=== PATIENT | male | born 1990 | race Caucasian/White ===

== ENCOUNTER 2019-08-17 13:17 | Emergency (ER) | payer MEDICAID ==
[~2019-08-17] VITALS: Ht 170.2 cm; Wt 106.0 kg
[2019-08-17 20:09] LABS: BASOPHILS % 0.4 % (0.0-2.0); EOSINOPHILS % 1.6 % (0.0-5.0); HEMOGLOBIN. 16.4 g/dL (14.0-18.0); LYMPHOCYTES % 29.6 % (20.0-50.0); MEAN CORPUSCULAR HEMOGLOBIN 31.6 pg (28.0-32.0); MEAN CORPUSCULAR VOLUME 90.5 fL (80.0-94.0); MEAN PLATELET VOLUME 9.3 fl (7.4-10.4); MONOCYTES % 8.6 % (2.0-8.0); NEUTROPHILS % 59.8 % (40.0-76.0); PLATELET 243 x1000/uL (130-400); RED BLOOD CELL COUNT 5.19 mill/uL (4.7-6.1); RED CELL DISTRIBUTION WIDTH 12.9 % (11.6-14.6)
[2019-08-17 20:11] LABS: CHLORIDE 105 mEq/L (98-107)
[2019-08-17 20:13] LABS: PROTHROMBIN TIME 10.7 sec (9.6-11.0)
[2019-08-17 20:29] LABS: CLARITY URINE CLEAR (CLEAR); COLOR URINE YELLOW (YELLOW); KETONES URINE NEGATIVE (NEGATIVE); LEUKOCYTE ESTERASE URINE NEGATIVE (NEGATIVE); NITRITE URINE NEGATIVE (NEGATIVE); OCCULT BLOOD URINE TRACE (NEGATIVE); PROTEIN URINE NEGATIVE (NEGATIVE)
[2019-08-17] MEDS ORDERED: ONDANSETRON 4MG ODT PO STA (20:43)
[2019-08-17] MEDS ORDERED: KETOROLAC 60MG/2ML VIAL IM ONE (20:45)
[2019-08-17 20:48] LABS: *BENZODIAZEPINES SCREEN URINE NEGATIVE (NEGATIVE); *COCAINE SCREEN URINE NEGATIVE (NEGATIVE); METHADONE URINE SCREEN NEGATIVE (NEGATIVE); OPIATES URINE SCREEN NEGATIVE (NEGATIVE)
[2019-08-17 20:49] LABS: *AMPHETAMINES SCREEN URINE NEGATIVE (NEGATIVE); *BARBITURATES SCREEN URINE NEGATIVE (NEGATIVE); CANNABINOID URINE SCREEN NEGATIVE (NEGATIVE); PHENCYCLIDINE URINE SCREEN NEGATIVE (NEGATIVE)
[2019-08-17 22:00] VITALS: BP 128/89
== END 2019-08-17 23:47 | disposition home or self-care (01) ==
LOC: ER 13:36
DX: R10.9 Unspecified abdominal pain (principal); R11.2 Nausea with vomiting, unspecified
CPT/HCPCS: 36415; 74021; 80053; 80305; 81003; 83690; 85025; 85610; 96372; 99284; J1885

== ENCOUNTER 2020-03-08 02:56 | Emergency (ER) | payer MEDICAID ==
[~2020-03-08] VITALS: Ht 170.2 cm; Wt 106.0 kg
[2020-03-08] MEDS ORDERED: ONDANSETRON 4MG ODT PO ONE (04:00)
[2020-03-08] MEDS ORDERED: ALBUTEROL (0.083%) 2.5MG/3ML NEB HHN STA (06:07)
[2020-03-08] MEDS ORDERED: IPRATROPIUM BROMIDE (0.02%) 0.5MG/2.5ML NEB HHN STA (06:07)
[2020-03-08 09:15] VITALS: BP 148/81
== END 2020-03-08 09:47 | disposition home or self-care (01) ==
LOC: ER 03:07
DX: U07.1 COVID-19 (principal)
CPT/HCPCS: 71045; 93005; 99283; Q0162; Z7610

== ENCOUNTER 2020-03-11 03:14 | Emergency (ER) | payer MEDICAID ==
[~2020-03-11] VITALS: Ht 170.2 cm; Wt 106.8 kg
[2020-03-11 03:21] VITALS: BP 137/90
[2020-03-11] MEDS ORDERED: ACETAMINOPHEN 500MG TABLET PO ONE (03:30)
== END 2020-03-11 03:49 | disposition home or self-care (01) ==
LOC: ER 03:14
DX: U07.1 COVID-19 (principal); J12.89 Other viral pneumonia
CPT/HCPCS: 99282

== ENCOUNTER 2020-03-12 04:17 | Emergency (ER) | payer MEDICAID ==
[~2020-03-12] VITALS: Ht 170.2 cm; Wt 106.0 kg
[2020-03-12] MEDS ORDERED: IBUPROFEN 600MG TABLET PO ONE (05:00)
[2020-03-12 05:23] VITALS: BP 147/77
== END 2020-03-12 05:33 | disposition home or self-care (01) ==
LOC: ER 04:17
DX: U07.1 COVID-19 (principal); J12.89 Other viral pneumonia
CPT/HCPCS: 99282

== ENCOUNTER 2020-03-13 02:58 | Emergency (ER) | payer MEDICAID ==
[~2020-03-13] VITALS: Ht 170.2 cm; Wt 106.0 kg
[2020-03-13] MEDS ORDERED: IBUPROFEN 600MG TABLET PO ONE (03:30)
[2020-03-13 03:35] VITALS: BP 138/72
== END 2020-03-13 03:36 | disposition home or self-care (01) ==
LOC: ER 02:58
DX: U07.1 COVID-19 (principal); J12.89 Other viral pneumonia; R03.0 Elevated blood-pressure reading, without diagnosis of hypertension; Z79.1 Long term (current) use of non-steroidal anti-inflammatories (NSAID)
CPT/HCPCS: 99281

== ENCOUNTER 2022-06-28 15:00 | Emergency (ER) | payer MEDICAID ==
[~2022-06-28] VITALS: Ht 172.7 cm; Wt 117.0 kg
[2022-06-28 15:12] VITALS: BP 185/116
[2022-06-28] MEDS ORDERED: CETI10CA11 MT (17:14)
[2022-06-28] MEDS ORDERED: OLOP5DRO25 EACHEYE (17:14)
== END 2022-06-28 18:00 | disposition home or self-care (01) ==
LOC: ER 15:00
DX: H10.12 Acute atopic conjunctivitis, left eye (principal)
CPT/HCPCS: 99282